=== PATIENT | female | born 1980 | race Caucasian/White ===

== ENCOUNTER 2018-04-09 10:49 | Inpatient (IN) | payer MEDICAID ==
[2018-04-09] MEDS ORDERED: METHYLERGONOVINE 0.2 MG INJ IM (12:30)
[2018-04-09] MEDS ORDERED: OXYTOCIN 30 UNITS/LR 500 ML IV (12:30)
[2018-04-09] MEDS ORDERED: CARBOPROST 250 MCG INJ IM (12:30)
[2018-04-09] MEDS ORDERED: MISOPROSTOL 200 MCG TAB PR (12:30)
[2018-04-09] MEDS ORDERED: BUTORPHANOL 2 MG INJ IV (12:30)
[2018-04-09] MEDS ORDERED: LIDOCAINE 1% (MPF) 30 ML INJ INJ (12:30)
[2018-04-09] MEDS: AMPICILLIN 2 GM/NS (PMX) 100 ML IV (12:30)
[2018-04-09 12:55] LABS: ADD MAN DIFF? NO
[2018-04-09] MEDS: LACTATED RINGER'S 1,000 ML IV* ×2 (12:59→18:00)
[2018-04-09 13:00] LABS: BASOPHILS % 0.6 % (0.0-2.0); EOSINOPHILS % 0.2 % (0.0-7.0); HEMATOCRIT 35.5 % (37.0-47.0); LYMPHOCYTES # 1.6 10^3/ul (0.8-2.9); LYMPHOCYTES % 29.9 % (15.0-51.0); MEAN CORPUSCULAR HEMOGLOBIN 30.2 pg (29.0-33.0); MEAN CORPUSCULAR HGB CONC 33.8 g/dl (32.0-37.0); MEAN CORPUSCULAR VOLUME 89.2 fl (82.0-101.0); MONOCYTE # 0.3 10^3/ul (0.3-0.9); MONOCYTES % 5.8 % (0.0-11.0); NEUTROPHIL # 3.4 10^3/ul (1.6-7.5); NEUTROPHILS % 63.1 % (39.0-77.0); PLATELET COUNT 190 10^3/UL (140-415); RED BLOOD COUNT 3.98 10^6/ul (4.20-5.40)
[2018-04-09 13:00] LABS: WHITE BLOOD COUNT 5.4 10^3/ul (4.8-10.8)
[2018-04-09 13:21] LABS: INR 0.82; PROTIME 11.4 Sec (11.9-14.9); PT RATIO 0.9
[2018-04-09 13:22] LABS: PARTIAL THROMBOPLASTIN TIME 23.6 Sec (23.0-35.0)
[2018-04-09 15:39] LABS: RAPID PLASMA REAGIN NONREACTIVE (NR)
[2018-04-09] MEDS ORDERED: AMPICILLIN 1 GM/NS (PMX) 50 ML IV (16:00)
[2018-04-09] MEDS: OXYTOCIN 30 UNITS/LR 500 ML IV ×3 (18:12→20:59)
[2018-04-09] MEDS ORDERED: MINERAL OIL LIGHT 10 ML VIAL (20:16)
[2018-04-09] MEDS ORDERED: LIDOCAINE 0.5% (SDV) 50 ML INJ (20:20)
[2018-04-09] MEDS: IBUPROFEN 600 MG TAB PO (21:41)
[2018-04-10] MEDS ORDERED: OXYTOCIN 30 UNITS/LR 500 ML IV (01:00)
[2018-04-10] MEDS ORDERED: METHYLERGONOVINE 0.2 MG INJ IM (01:00)
[2018-04-10] MEDS ORDERED: ZOLPIDEM 5 MG TAB PO (01:00)
[2018-04-10] MEDS ORDERED: MISOPROSTOL 200 MCG TAB PR (01:00)
[2018-04-10] MEDS ORDERED: HYDROCODONE/APAP (5/325) TAB PO ×2 (01:00)
[2018-04-10] MEDS ORDERED: CARBOPROST 250 MCG INJ IM (01:00)
[2018-04-10] MEDS: LACTATED RINGER'S 1,000 ML IV* ×3 (01:31→16:35)
[2018-04-10] MEDS: BENZOCAINE 20% 56 ML SPRAY TOP (01:35)
[2018-04-10] MEDS: DIBUCAINE 1% 30 GM OINT PR (01:36)
[2018-04-10] MEDS: WITCH HAZEL/GLYCERIN PAD PR (01:36)
[2018-04-10] MEDS: LANOLIN 7 GM TUBE TOP (01:36)
[2018-04-10] MEDS: LEVOTHYROXINE 25 MCG TAB PO (06:00)
[2018-04-10] MEDS: IBUPROFEN 600 MG TAB PO ×4 (06:00→23:20)
[2018-04-10 08:23] LABS: ADD MAN DIFF? NO
[2018-04-10 08:27] LABS: BASOPHILS % 0.3 % (0.0-2.0); HEMATOCRIT 34.9 % (37.0-47.0); HEMOGLOBIN 11.9 g/dl (12.0-16.0); LYMPHOCYTES # 1.8 10^3/ul (0.8-2.9); MEAN CORPUSCULAR HEMOGLOBIN 30.2 pg (29.0-33.0); MEAN CORPUSCULAR HGB CONC 34.1 g/dl (32.0-37.0); MEAN CORPUSCULAR VOLUME 88.6 fl (82.0-101.0); MEAN PLATELET VOLUME 11.6 fl (7.4-10.4); MONOCYTE # 0.5 10^3/ul (0.3-0.9); MONOCYTES % 4.9 % (0.0-11.0); NEUTROPHIL # 8.7 10^3/ul (1.6-7.5); NEUTROPHILS % 78.3 % (39.0-77.0); PLATELET COUNT 167 10^3/UL (140-415); RED BLOOD COUNT 3.94 10^6/ul (4.20-5.40); RED CELL DISTRIBUTION WIDTH 11.9 % (11.5-14.5)
[2018-04-10 08:27] LABS: WHITE BLOOD COUNT 11.1 10^3/ul (4.8-10.8)
[2018-04-10] MEDS: SENNA/DOCUSATE NA (8.6MG/50MG) TAB PO ×2 (08:57→21:54)
[2018-04-10] MEDS: MAGNESIUM HYDROXIDE 30ML CUP PO ×2 (08:57→21:53)
[2018-04-11] MEDS: LACTATED RINGER'S 1,000 ML IV* ×2 (00:35→07:56)
[2018-04-11] MEDS: IBUPROFEN 600 MG TAB PO ×2 (05:35→12:19)
[2018-04-11] MEDS: LEVOTHYROXINE 25 MCG TAB PO (05:35)
[2018-04-11] MEDS: SENNA/DOCUSATE NA (8.6MG/50MG) TAB PO (09:00)
[2018-04-11] MEDS: MAGNESIUM HYDROXIDE 30ML CUP PO (09:00)
[2018-04-11] MEDS: MEASLES,MUMPS,RUBELLA VACCINE INJ SC* (09:59)
[2018-04-11] MEDS: VARICELLA VACCINE LIVE/PF 1,350 UNIT/0.5 ML ML SC* (09:59)
[2018-04-11] MEDS: DIPHTH/TET/ACEL PERTUSS (ADULT) 0.5 ML VIAL IM* (10:00)
== END 2018-04-11 14:40 | disposition home or self-care (01) | DRG 807 ==
LOC: OBT 10:49 → L-D 10:49 → OBT 11:09 → L-D 11:09 → PP1 22:18
PROVIDERS: Obstetrics & Gynecology
PROC: 10E0XZZ Delivery of Products of Conception, External Approach (ICD-10-PCS; principal; 2018-04-09)
PROC: 0KQM0ZZ Repair Perineum Muscle, Open Approach (ICD-10-PCS; 2018-04-09)
PROC: 3E033VJ Introduction of Other Hormone into Peripheral Vein, Percutaneous Approach (ICD-10-PCS; 2018-04-09)
DX: O99.284 Endocrine, nutritional and metabolic diseases complicating childbirth (principal); E03.9 Hypothyroidism, unspecified; O70.0 First degree perineal laceration during delivery; Z3A.39 39 weeks gestation of pregnancy; Z37.0 Single live birth
CPT/HCPCS: 85025; 85610; 85730; 86592; 86850; 86900; 86901; 90715; 90716